=== PATIENT | male | born 1990 | race Two or more races ===

== ENCOUNTER 2018-10-15 09:59 | Emergency (ER) | payer SELFPAY ==
[~2018-10-15] VITALS: Ht 170.2 cm; Wt 65.8 kg
[2018-10-15 10:04] VITALS: BP 141/99
[2018-10-15] MEDS ORDERED: KETOROLAC TROMETH 60MG/2ML VIAL IM ONE (10:15)
[2018-10-15] MEDS ORDERED: cefTRIAXone SOD 1,000 MG VL IM ONE (10:15)
== END 2018-10-15 11:47 | disposition home or self-care (01) ==
LOC: ER 09:59
CPT/HCPCS: 70486 ×2; 96372 ×2; 99284; J0696 ×2; J1885 ×2